=== PATIENT | female | born 1985 | race Caucasian/White ===

== ENCOUNTER → 2022-11-02 11:06 | Outpatient (BNVA) | payer OTHER, SELFPAY | PROVIDERS: Referring Provider Otolaryngology; Visit Provider Surgery | DX: R09.89 Other specified symptoms and signs involving the circulatory and respiratory systems (principal) | CPT/HCPCS: 99203 ==

== ENCOUNTER 2022-11-30 08:29 | Day surgery (SDC) | payer OTHER, SELFPAY ==
--- NOTE | 2022-11-29 16:26 | W.PM.DSUDISC ---
Date of service: 11/30/22 Time of Service: 11:27 Discharge Plan Disposition Patient Disposition: Home Condition: Good Discharge Details Reason For Visit: stomach scope Attending Provider: Filomena Sanon Primary Care Provider: None,None Home Meds and New Rx's Prescriptions: No Action cetirizine 10 mg tablet 10 mg PO DAILY fluoxetine 20 mg capsule 20 mg PO DAILY pantoprazole 20 mg tablet,delayed release (DR/EC) 20 mg PO DIRECTED spironolactone 50 mg tablet 50 mg PO DAILY cholecalciferol (vitamin D3) 2,000 units PO DAILY bupropion HCl [Wellbutrin XL] 150 mg tablet extended release 24 hr 150 mg PO DAILY Discharge Instructions Additional Instructions: Post EGD Instruction ?You had anesthesia for your EGD/stomach scope today.? For your safety, please do the following for the next twenty-four (24) hours: Do Not operate a motor vehicle (car, truck, motorcycle, etc.) Do Not drink alcoholic beverages or use any recreational drugs for the first 24 hours or while taking pain medications. The medications in your body may have a reaction that can be dangerous. Do Not make any important decisions or sign any important papers You have just had a gastroscopy (EGD) or upper GI tract examination. It is important for your smooth recovery that you carefully follow the recommendations below. Do not hesitate to call if any questions should arise about your anesthesia, condition, or care. -Symptoms you may experience during the next 24 hours: ?1. Mild abdominal pain or excessive gas or a bloated feeling which improves with rest, liquids, eating??lightly, and walking as tolerated. 2. Drowsiness and/or forgetfulness because of the medications you were given. 4. A sore throat which you can treat with throat lozenges or by gargling with salt water 4-5 times a day. 5. Redness at the site of your IV which you can treat with warm compresses. SPECIAL INSTRUCTIONS: 1. You may resume your previous diet in one hour. We recommend a light meal to start, then progress as tolerated. 2. Restart regular medications in one hour. 3. No aspirin or non-steroidal containing medication for three days. 4. No lifting over 20 pounds or strenuous activity for the first 24 hours after your procedure. After 24 hours there are no restrictions on your activity, but you may feel fatigued for a few days. Findings: few polyps otherwise normal Treatment: -Continue to follow lifestyle modifications: No alcohol, tobacco products, Aspirin or NSAID's (ibuprofen, Motrin, Naprosyn, aleve, etc).? Try to limit/avoid:? soda pop/any carbonated beverages, caffeine (including tea & chocolate), and acidic foods, (tomatoes, citrus, onions, peppermints) spicy or fried/fatty foods. Do not lie down for 30 minutes after eating, and do not eat 2 hours prior to bedtime. Avoid wearing tight fitting clothing/ belts. Follow up: in 2 wks time Call the office at [phone] (Office) or [phone] (Hospital), or go to the ER right away if you notice any of the followin. Vomiting blood and /or ?coffee ground? material. ?2. Worsening of abdominal pain or cramping. ?3. Trouble with breathing, cough, and/or fever (temperature above 101.5 F). 4. Increasing pain with swallowing. ?5. Chest pain. 6. Any new symptoms. 7. Worsening of the redness at the IV site Activity:: See above Diet:: See above Discharge Orders Discharge Orders: Discharge Order (Routine); Ordered 11/30/22 Ordered By: Filomena Sanon DS: Diagnosis Discharge Diagnosis (1) Thyroid nodule: Status: Acute (2) Globus sensation: Status: Acute
--- NOTE | 2022-11-30 06:36 | W.ANESPRE ---
General Info Date of Service Date Performed: 11/30/22 Height: 5 ft 4 in Weight: 105.233 kg Body Mass Index (BMI): 39.8 Surgical Procedure: Operation Date: 11/30/22 10:35 Proposed Procedure Side Surgeon p Gastroscopy Filomena Sanon, DO Meds Allergies and Home Medications Allergies Allergy/AdvReac Type Severity Reaction Status Date / Time banana Allergy Unknown Verified 11/30/22 09:02 egg Allergy Unknown Other (See Unverified 11/30/22 09:02 Comment) raspberry Allergy Unknown Other (See Unverified 11/30/22 09:02 Comment) Home Medication Medication Instructions Recorded bupropion HCl 150 mg 24 hr tablet, 150 mg PO DAILY 10/26/22 extended release (Wellbutrin XL) cetirizine 10 mg tablet 10 mg PO DAILY 10/26/22 cholecalciferol (vitamin D3) 2,000 units PO DAILY 10/26/22 fluoxetine 20 mg capsule 20 mg PO DAILY 10/26/22 pantoprazole 20 mg tablet,delayed 20 mg PO DIRECTED 10/26/22 release spironolactone 50 mg tablet 50 mg PO DAILY 10/26/22 Current Visit Medications: Current Medications Generic Name Dose Route Start Last Admin Trade Name Freq PRN Reason Stop Dose Admin Hyoscyamine Sulfate 0.125 mg 11/30/22 10:23 Hyoscyamine 0.125 Mg Sl/Oral/Chew SL 12/30/22 10:22 DIRECTED PRN Ringer's Solution 1,000 mls @ 80 mls/hr 11/30/22 06:00 IV 12/29/22 23:59 INFUSION [facility] IV Miscellaneous Supplies 1 each 11/30/22 06:00 Iv Access IV 12/29/22 23:59 DIRECTED SRINIVAS Ondansetron HCl 4 mg 11/30/22 10:23 Ondansetron 4 Mg/2 Ml Vial IVP 12/30/22 10:22 Q4H PRN PRN Nausea / Vomiting Sodium Chloride 0 ml 11/30/22 06:00 Normal Saline Flush 10 Ml Syr IV 12/29/22 23:59 PRN PRN Sodium Chloride 0 ml 11/30/22 06:00 Normal Saline 10 Ml Vial IJ 12/29/22 23:59 DIRECTED PRN Sterile Water 0 ml 11/30/22 06:00 Water,Injection,Sterile 10 Ml Vial IJ 12/29/22 23:59 DIRECTED PRN PFS Active Problems Active Problems: Problem Status Onset Code Thyroid nodule E04.1 Globus sensation R09.89 Medical History Medical History Acne Anxiety Surgical History Surgical History History of 2 sections 2013 History of nasal surgery Turbinoplasty 2021 History of surgery 2021 unspecified-Pt. states she had sinus on nasal turbinates History of wisdom tooth extraction 1999 Tobacco Smoking/Tobacco Use Status: Never Alcohol Alcohol Intake: current Alcohol intake frequency: holidays/special occasions only Substance Use Substance use: Never Substance use type: does not use Vital Signs and Lab Results Vital Signs Most Recent Vital Signs in EMR: Temp Pulse Resp BP Pulse Ox 36.5 C 71 18 133/97 H 100 11/30/22 08:42 11/30/22 08:42 11/30/22 08:42 11/30/22 08:42 11/30/22 08:42 Lab Results Blood Type / Crossmatch: No Data to Display Complete Blood Count: No Data to Display Complete Metabolic Panel: No Data to Display Liver Function Panel: No Data to Display Coagulation Panel: No Data to Display Cardiac Panel: No Data to Display Arterial Blood Gas: No Data to Display Venous Blood Gas: No Data to Display Pancreas Panel: No Data to Display Thyroid Panel: No Data to Display Infectious Disease: No Data to Display Blood Cultures: No Data to Display Toxicology Panel: No Data to Display Panel: No Data to Display Anesthesia Assessment and Plan Anesthesia History Personal History: No History of Anesthesia Complications Family History: No Family History of Anesthesia Complications Exercise Tolerance Exercise Tolerance: Metabolic Equivalents>4 Pertinent Negatives Pertinent Negatives: No Symptoms of GERD (controlled with meds), No Major Cardiovascular Symptoms or Complaints, No Major Pulmonary Symptoms or Complaints and No History of CVA/TIA Cardiac & Pulmonary Exam Cardiac Exam: Normal S1/S2 Heart Sounds Pulmonary Exam: Clear Bilateral Breath Sounds Implantable Cardiac Device Does patient have a Pacemaker or an ICD?: No Airway Exam Known Difficult Airway: No Mallampati Class: 1 Mouth Opening: Normal (> 3cm) Thyromental Distance: Greater than 3 cm Neck Range of Motion: Full ROM Neck Circumference: Normal Teeth Condition: Normal Dentition ASA Classification ASA Score: ASA 3 Emergency Case?: No NPO Status NPO Status: NPO Clears >2 hours, Solids >8 hours Status Status: Negative HCG Anesthesia Plan Resuscitation Status: Full Code Anesthesia Technique: General Anesthesia Airway Planned: Natural Airway Monitors Used: Standard Monitors Preoperative Comments:: 36 yo female for EGD. Sig PMHx: thyroid nodule, GERD, anxiety, s/p turbinoplasty, never smoker, occ EtOH.
[2022-11-30 08:42] VITALS: BP 133/97; PULSE 71; RESP 18; TEMP 36.5; O2SAT 100
[2022-11-30] MEDS: Lactated Ringers 1,000 ML 80 ML IV (09:23)
[2022-11-30 09:58] VITALS: BMI 39.8
--- NOTE | 2022-11-30 11:12 | STOM_PTH ---
PATIENT: Kylah Kirk LOC: [facility] U#:[id number] AGE/SX: 36/F ROOM: RE11/30/[address]: Filomena Sanon : 1985 BED: DIS: 11/30/2022 SPEC #: [id number] RECD: 11/30/22 13:03 STATUS: LIGIA [facility] #: [id number] QUANG: 11/30/22 11:[address]: Filomena Sanon DEPT: Surgical Specimen RECD BY: Little Andino ENTERED: 11/30/22 13:07 SP TYPE: STOMACH OTHR DR: Faustino Salgado MD Tissues: 1 - BIOPSY BOWEL 2 - BIOPSY BOWEL 3 - STOMACH BIOPSY 4 - STOMACH BIOPSY 5 - STOMACH BIOPSY 6 - ESOPHAGUS BIOPSY 7 - ESOPHAGUS BIOPSY 8 - ESOPHAGUS BIOPSY Procedures: GROSS AND MICRO LEVEL 4 Comments: [id number]
[2022-11-30 11:25] VITALS: BP 115/85; PULSE 87; RESP 18; TEMP 36.5; O2SAT 97
--- NOTE | 2022-11-30 11:28 | W.PM.ENDDOP ---
Date of service: 11/30/22 Time of Service: 11:28 Endoscopy Report DATE OF PROCEDURE: 11/30/22 PRE-OP DIAGNOSIS: globus sensation POST-OP DIAGNOSIS: other (same and polyps) SURGEON: Filomena Sanon ANESTHESIA TYPE: General:No Airway ESTIMATED BLOOD LOSS: 1 PATHOLOGY: other COMPLICATIONS: None DISPOSITION: same day PROCEDURE DESCRIPTION: After informed consent was obtained the patient was take to the procedure room and placed in a supine position. Monitors were applied and a time out was done. The patients name, date of , procedure type, allergies to medications and metal in their body was reviewed. A bite block was placed and the patient was sedated. Once sedated and comfortable the gastroscope was advanced through the oropharynx which was grossly normal into the esophagus. The proximal and mid-esophagus were grossly normal in appearance. There are no esophageal erosions, varices, diverticula or strictures visualized today. There does not appear to be a hiatal hernia the scope was advanced into the stomach and through the pylorus into the 3rd portion of the duodenum. The duodenum was noted to be normal. The scope is passed into the fourth portion of the duodenum/proximal jejunum. Biopsies taken of this area. Biopsies were done all specimens are retrieved and no bleeding is noted. The scope was retracted back into the stomach and biopsies were done to rule out H. pylori. There were no ulcers or gastritis. The scope was retroflexed. The cardia and fundus were noted to be normal. There are a few small polyps in the cardia fundus region. A community representative polyp was biopsied. There is no 35 a hiatal hernia noted. The scope was retracted back into the esophagus and biopsies were done of the GE junction to rule out Gonzalez's. The Z line was regular. The GE junction was at 35 cm. Biopsies are taken at the GE junction and 2 cm above labeled as distal esophagus. The scope was removed and the patient was woken up and taken back to [facility] in stable condition. Follow up: 2 wks to review bx.
[2022-11-30 11:50] VITALS: BP 111/82; PULSE 73; RESP 18; TEMP 36.5; O2SAT 99
--- NOTE | 2022-11-30 11:52 | W.ANESPOSTOP ---
Postoperative Evaluation Date, Time and Location Date Performed: 11/30/22 Time Performed: 11:25 Patient Location: Day Surgery Unit Vital Signs Most Recent Imported Vital Signs: Most Recent Vital Signs Temp Pulse Resp BP Pulse Ox 36.5 C 87 18 115/85 97 11/30/22 11:25 11/30/22 11:25 11/30/22 11:25 11/30/22 11:25 11/30/22 11:25 Pain Score Most Recent Pain Score: Most Recent Pain Score Pain Level 0 11/30/22 11:25 Assessment Mental Status: Awake (Alert & Oriented to Patient Baseline) Airway and Respiratory Function: Patent airway with normal (patient baseline) respiratory exam Cardiovascular Function: Hemodynamically Stable Hydration Status: Adequately Hydrated Nausea & Vomiting: No Nausea or Vomiting Pain: Pt. Denies Any Pain Peripheral Nerve Block: Patient did not receive a nerve block
== END 2022-11-30 12:26 | disposition home or self-care (01) ==
PROVIDERS: Visit Provider Surgery
PROC: 0DJ68ZZ Inspection of Stomach, Via Natural or Artificial Opening Endoscopic (ICD-10-PCS; CPT 43235; principal; 2022-11-30 10:00)
DX: K31.7 Polyp of stomach and duodenum (principal); R19.8 Other specified symptoms and signs involving the digestive system and abdomen; E04.1 Nontoxic single thyroid nodule; K31.9 Disease of stomach and duodenum, unspecified; K31.89 Other diseases of stomach and duodenum; K22.89 Other specified disease of esophagus
CPT/HCPCS: 43239; 81025; 88305; J2405

== ENCOUNTER 2022-12-14 01:26 | Outpatient (CLI) | payer OTHER, SELFPAY ==
--- NOTE | 2022-12-14 07:45 | DI.US_ITS ---
Exam(s) US NEEDLE LOCAL OTHER WO RAD EXAM: (2) right sided TR5 thyroid nodules,ultrasound guided bx,e04.1 COMPARISON: US US THYROID/NECK/HEAD from 09/30/2022 TECHNIQUE: Ultrasound performed using standard protocol. FINDINGS: Sonography was provided for Dr. Mccarty during the performance of a ultrasound-guided thyroid nodule biopsy. Please refer to the procedure report for complete details. DATA REPOSITORY:
--- NOTE | 2022-12-14 12:00 | PAPNONF_PTH ---
PATIENT: Kylah Kirk LOC: [facility] U#:[id number] AGE/SX: 37/F ROOM: RE12/14/[address]: Paige Scales : 1985 BED: DIS: 12/14/2022 SPEC #: [id number] RECD: 12/14/22 12:59 STATUS: LIGIA [facility] #: [id number] QUANG: 12/14/22 12:[address]: Paige Scales DEPT: [facility] Cytology RECD BY: Little Andino Tissues: 1 - BODY FLUID CYTO-FINE NEEDLE ASPIRATE-[facility] 2 - BODY FLUID CYTO-FINE NEEDLE ASPIRATE-[facility] Procedures: BODY FLUID CYTO-FINE NEEDLE ASPIRATE-[facility] Comments: [id number] (PATH FNA CONSULT) (REFRIGERATED)
--- NOTE | 2022-12-14 13:16 | W.PROCNOTE ---
Date of service: 12/14/22 Time of Service: 13:16 Procedure Note Date of procedure: 12/14/22 Procedure: Ultrasound-guided FNA, right thyroid nodule x2, pathology present Surgeon/Proceduralist/Physician: Cody Mccarty Procedure Diagnosis: Right thyroid nodules Procedure Indications: The patient has 2 right-sided thyroid nodules that meet criteria for biopsy. Options were explained to the patient regarding further management. She elected undergo the above procedure. Consent was filled out and signed prior to surgery. Procedure Description: The patient was positioned in supine position and prepped and draped in appropriate fashion with her neck slightly extended. Ultrasound probe was used to localize the nodules and each was biopsied via FNA using a 25-gauge needle, with pathology assessing for cellular adequacy. Additional passes were made for possible Afirma testing into each nodule. Once been accomplished both nodules, and ensuring adequate hemostasis, a sterile dressing was applied and the patient was laid to sit and then to stand. Her vital signs remained stable. She was able to ambulate afterwards without difficulty.
== END 2022-12-14 01:46 ==
PROVIDERS: Visit Provider Registered Nurse Maternal Newborn
DX: E04.1 Nontoxic single thyroid nodule (principal)
CPT/HCPCS: 10005; 76942; 88104

== ENCOUNTER → 2022-12-16 13:36 | Outpatient (BNVA) | payer OTHER, SELFPAY | PROVIDERS: PCP Obstetrics & Gynecology; Visit Provider Surgery | DX: Z48.815 Encounter for surgical aftercare following surgery on the digestive system (principal) | CPT/HCPCS: 99212; 99213 ==

== ENCOUNTER 2024-08-20 16:44 | Outpatient (CLI) | payer OTHER, SELFPAY ==
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
== END 2024-08-20 17:04 ==
LOC: DI 16:54
PROVIDERS: PCP Obstetrics & Gynecology; Visit Provider Anesthesiology Pain Medicine
DX: M53.3 Sacrococcygeal disorders, not elsewhere classified (principal)
CPT/HCPCS: 72220

== ENCOUNTER 2024-09-03 08:37 | Outpatient (CLI) | payer OTHER, SELFPAY ==
[2024-09-03 08:48] VITALS: BP 133/107; PULSE 86; RESP 20; TEMP 37; O2SAT 99
--- NOTE | 2024-09-03 08:48 | PDOC.PAIN ---
Date of service: 09/03/24 Time of Service: 09:37 Pain Managment Procedure Note Procedure Note Procedure Note: ? Procedure: COCCYX INJECTION ? Pre-procedure Diagnosis: M53.3 COCCYDYNIA ? Post-procedure Diagnosis:? The same as above ? Sedation: NONE? Estimated blood loss:? less than 1 cc ? Surgeon:? Bryce Delcid MD Comment: Patient had x-rays and CT of sacrum and coccyx. Looks like there is a chronic appearing lucency of the fifth sacral vertebrae. The small joint between the first 2 coccyx segments appears arthritic. On examination there is also tenderness at this site and below. ? Procedure Detail:? The procedure and potential risks were explained to the patient and informed written consent was obtained. The patient was escorted to the procedure room and placed in the prone position. Pillows were utilized for proper positioning and comfort.? Time out was performed in procedure room with nursing staff confirming the patient's identity, procedure to be performed, allergies, and any blood thinning or anti-platelet medications. The patient's lower back was prepped with chlorhexidine and draped in a sterile fashion. Sterile technique was maintained throughout the procedure.? Sterile gloves were used, a face mask was worn, and new single dose vials of all medications were used with the top being swabbed with alcohol and given time to dry prior to withdrawal of medication.? A/P and lateral fluoroscopic view was obtained, with visualization of the COCCYX IN LATERAL VIEW ? 1% LIDOCAINE was used to anesthetize the skin. A 25-gauge needle was advanced TO THE POINT OF MAXIMUM TNDERNESS . . Proper placement was verified in LATERAL views under fluoroscopy with 0.25ml Omnipaque 240. At this location, following negative aspiration, 1cc 0.5% bupivacaine and 20 mg depomedrol was injected at 2 sites.? The patient tolerated the procedure well and was transported to the recovery area for observation and discharge instructions. Permanent images saved and recorded. Pain Level: Pre-procedure 710 Post-proced /10 Follow-up:prn COMMENT:?Repeat as needed. Will consider other options possibly radiofrequency ablation or surgical referral.
[2024-09-03 09:26] VITALS: PULSE 86; O2SAT 100
--- NOTE | 2024-09-03 09:28 | DI.RAD_ITS ---
Exam(s) XR PAIN CLINIC LUMBAR SP 2V EXAM: XR PAIN CLINIC LUMBAR SP 2V CLINICAL HISTORY: DX: Coccydynia. TECHNIQUE: 2D and realtime digital imaging was performed. CONTRAST MATERIAL: Oral barium Oral water soluble contrast was administered. COMPARISON: No exams were available for comparison FINDINGS: Fluoroscopy provided during pain management injection coccyx region. See procedure report for detail s IMPRESSION: Total fluoroscopy time 29 seconds RADIATION DOSE DELIVERED: Lotusr=17.45mGy
[2024-09-03] MEDS: Nerve Block Tray 1 EACH MC (09:38)
[2024-09-03] MEDS: Bupivacaine 0.5% Pres-Free 10 ML VIAL IJ (09:38)
[2024-09-03] MEDS: methylPREDNISolone ACETATE 80 MG/ML VIAL IJ (09:39)
[2024-09-03] MEDS: Omnipaque 240 MG/ML 50 ML BTL IJ (09:39)
== END 2024-09-03 08:38 | disposition home or self-care (01) ==
LOC: PC 08:38
PROVIDERS: PCP Obstetrics & Gynecology; Visit Provider Anesthesiology Pain Medicine
DX: M53.3 Sacrococcygeal disorders, not elsewhere classified (principal)
CPT/HCPCS: 00123; 20605; 72100; J0665; J1010; Q9967

== ENCOUNTER 2025-02-13 17:07 | Outpatient (REF) | payer OTHER, SELFPAY ==
[2025-02-15 14:14] LABS: Chlamydia Result Negative (Negative); GC Result Negative (Negative)
== END 2025-02-13 17:08 | disposition home or self-care (01) ==
LOC: LBN 17:07
PROVIDERS: PCP Obstetrics & Gynecology; Visit Provider Nurse Practitioner Family
DX: R30.0 Dysuria (principal); Z11.3 Encounter for screening for infections with a predominantly sexual mode of transmission
CPT/HCPCS: 87491; 87591; 87480; 87510; 87660

== ENCOUNTER 2025-04-30 09:38 | Outpatient (CLI) | payer OTHER, SELFPAY ==
--- NOTE | 2025-04-30 06:00 | DI.RAD_ITS ---
Exam(s) XR PAIN CLINIC SACRUM 2V EXAM: XR PAIN CLINIC SACRUM 2V CLINICAL HISTORY: DX: Coccydynia TECHNIQUE: 2D and realtime digital imaging was performed. CONTRAST MATERIAL: Refer to procedure report. COMPARISON: No exams were available for comparison FINDINGS: Fluoroscopy was provided for Dr. Delcid during the performance of a coccygeal injection. Please refer to the procedure report for complete details. Ka,r=10.7 mGy IMPRESSION: RADIATION DOSE DELIVERED: 0.0 0.0 0
[2025-04-30 09:46] VITALS: BP 122/87; PULSE 93; RESP 20; TEMP 37; O2SAT 96
[2025-04-30 10:38] VITALS: PULSE 79; O2SAT 100
[2025-04-30 10:40] VITALS: PULSE 80; O2SAT 100
[2025-04-30 10:50] VITALS: PULSE 90; O2SAT 99
--- NOTE | 2025-04-30 10:53 | PDOC.PAIN ---
Date of service: 04/30/25 Time of Service: 10:56 Pain Managment Procedure Note Procedure Note Procedure Note: ? Procedure: COCCYX INJECTION ? Pre-procedure Diagnosis: M53.3 COCCYDYNIA ? Post-procedure Diagnosis:? The same as above ? Sedation: NONE? Estimated blood loss:? less than 1 ml ? Surgeon:? Bryce Delcid MD COMMENT: Patient had previous coccyx injection with excellent relief for 7 months. Patient had x-rays and CT of sacrum and coccyx. Looks like there is a chronic appearing lucency of the fifth sacral vertebrae. The small joint between the first 2 coccyx segments appears arthritic. On examination there is also tenderness at this site and below. ? Procedure Detail:? The procedure and potential risks were explained to the patient and informed written consent was obtained. The patient was escorted to the procedure room and placed in the prone position. Pillows were utilized for proper positioning and comfort.? Time out was performed in procedure room with nursing staff confirming the patient's identity, procedure to be performed, allergies, and any blood thinning or anti-platelet medications. The patient's lower back was prepped with chlorhexidine and draped in a sterile fashion. Sterile technique was maintained throughout the procedure.? Sterile gloves were used, a face mask was worn, and new single dose vials of all medications were used with the top being swabbed with alcohol and given time to dry prior to withdrawal of medication.? A/P and lateral fluoroscopic view was obtained, with visualization of the COCCYX IN LATERAL VIEW ? 1% LIDOCAINE was used to anesthetize the skin. A 25-gauge needle was advanced TO THE POINT OF MAXIMUM TNDERNESS . . Proper placement was verified in LATERAL views under fluoroscopy with 0.25ml Omnipaque 240. At this location, following negative aspiration, 1ml 0.5% bupivacaine and 20 mg depomedrol was injected at 2 sites.? The patient tolerated the procedure well and was transported to the recovery area for observation and discharge instructions. Permanent images saved and recorded. Pain Level: Pre-procedure 7/10 Post-procedur 0/10 Follow-up:prn COMMENT: Would repeat as needed Coding Conscious Sedation used for procedure: No CPT Codes: Inj,Bursa/Tendon Intermed (not SI) - ([id number] ~G) Fluoroscopic guidance (spine/paraspinous inj.) - 78124 ([id number] ~G) Additional Codes: Date of Service (11511) Date of service: 04/30/25 Diagnoses: M53.3 COCCYDYNIA
[2025-04-30] MEDS: Nerve Block Tray 1 EACH MC (11:01)
[2025-04-30] MEDS: Omnipaque 240 MG/ML 50 ML BTL IJ (11:02)
[2025-04-30] MEDS: Bupivacaine 0.5% Pres-Free 10 ML VIAL IJ (11:02)
[2025-04-30] MEDS: methylPREDNISolone ACETATE 80 MG/ML VIAL IJ (11:02)
== END 2025-04-30 09:39 | disposition home or self-care (01) ==
LOC: PC 09:38
PROVIDERS: PCP Obstetrics & Gynecology; Visit Provider Anesthesiology Pain Medicine
DX: M53.3 Sacrococcygeal disorders, not elsewhere classified (principal)
CPT/HCPCS: 20605; 72220; J0665; J1010; Q9967

== ENCOUNTER 2025-05-27 16:12 | Emergency (ER) | payer OTHER, SELFPAY ==
[2025-05-27 16:22] VITALS: BP 146/100; PULSE 87; RESP 16; TEMP 37.2; O2SAT 98
--- NOTE | 2025-05-27 16:54 | ED.GENADUL_ITS ---
Discharge Plan Disposition Patient Disposition: Home Condition: Stable Discharge Details Clinical Impression: Right calf pain Primary Care Provider: Martin Dempsey ED Provider: Carlton Ruth Home Meds and New Rx's Prescriptions: Continued epinephrine [EpiPen] 0.3 mg/0.3 mL auto-injector 0.3 mg IM Q5-15M PRN Rx Instructions: do not exceed 3 doses per episode Wegovy 1.7 mg/0.75 mL pen injector 1.7 mg subcut QWEEK Rx Instructions: administer weeks 13 through 16 of therapy cetirizine 10 mg tablet 10 mg PO DAILY fluoxetine 20 mg capsule 40 mg PO DAILY Discharge Instructions Instructions: Leg Pain (ED) Additional Instructions: You were seen in the emergency department for your right calf pain, your D-dimer is negative indicating extremely low likelihood of any clot process. This is likely musculoskeletal calf pain or an Achilles tendinopathy. Please continue Tylenol and ibuprofen as needed, obtain [id number] Voltaren gel, gently massage the area and alternate heat and ice the area with elevation and continue compression stockings as needed, follow-up with your PCP or orthopedics, please return for any severe skin changes below the pain, unilateral leg swelling, wor sening despite treatment or any other emergent concerns. Stand Alone Forms: Portal Information Referrals: [facility] [Provider Group] Martin Dempsey MD [Primary Care Provider, Obstetrics] HPI General Date/Time Provider Initiated Documentation: 05/27/25 16:17 . HPI Narrative: 39 year-old female presents to ED today by POV/ambulating with a chief complaint of R calf pain with onset a few days ago- seems to be getting worse and spreading up the leg each day. Quality described as like a stabbing pain deep in the mid to proximal calf, and a new varicosity that spontaneously popped up just above it, no radiation to unilateral leg swelling, gross skin changes to the R distal leg, medial thigh pain. Severity is described as severe. Palliating factors include relief with very hot baths, but not compression stockings. Provoking factors include nothing specific. Events leading up to the incident/Associated Symptoms: Patient does not take hormonal medications. Patient not anticoagulated. Related Data Home Medications Medication Instructions Recorded Confirmed cetirizine 10 mg tablet 10 mg PO DAILY 10/26/2210/16 fluoxetine 20 mg capsule 40 mg PO DAILY 10/26/2210/16 semaglutide (weight loss) 1.7 1.7 mg subcut QWEEK 09/1705/27/25 mg/0.75 mL subcutaneous pen injector (Wegovy) epinephrine 0.3 mg/0.3 mL 0.3 mg IM Q5-15M PRN 5 05/27/25 injection, auto-injector (EpiPen) Allergies Allergy/AdvReac Type Severity Reaction Status Date / Time banana Allergy Unknown Swelling/Ed Verified 05/27/25 16:26 jose egg Allergy Unknown Other (See Unverified 05/27/25 16:26 Comment) raspberry Allergy Unknown Other (See Unverified 05/27/25 16:26 Comment) General Stated Complaint: Vascular SABRINA: 3 Review of Systems All systems reviewed & are unremarkable except as noted in HPI and below Exam Narrative Exam Narrative: GENERAL APPEARANCE: Well-nourished, non-toxic, awake and alert, atraumatic, no acute distress. SKIN: Warm, pink, dry, intact, without rashes/lesions/ulcerations. HEAD: Normocephalic, atraumatic, normal hair distribution for gender/age. EYES: Normal conjunctiva, no exudates on lids/lashes. ENT: Nares patent, no circumoral cyanosis, no facial swelling NECK: Supple, trachea midline, painless cervical ROM. LUNGS/CHEST: Non-labored respirations, normal A/P diameter, symmetrical expansion, no chest wall deformity HEART (CV/PV): No peripheral edema, no JVD. ABDOMEN: Soft, non-distended, no guarding. MSK: Normal ROM, no swelling/deformity to bilateral UEs or LEs- tenderness in the right calf with an isolated small varicosity just above this, no medial thigh tenderness, Homans positive, brisk capillary refill and sensation intact in the right foot, moving all extremities without weakness, no cyanosis, spine midline without tenderness, normal curvature. NEURO: Mental Status AAOx4 - alert to person, place, time, events No facial droop, no forehead involvement. Motor: No focal weakness - strength 5/5 in bilateral UEs and LEs, proximal and distal, symmetric. Sensory: sensation intact to light touch globally. Gait normal: patient ambulated without ataxia into ED room. PSYCH: euthymic, cooperative, pleasant, appropriate speech Course Vital Signs Vital signs: Vital Signs Temperature 37.2 C 05/27/25 16:22 Pulse 87 05/27/25 16:22 Respiratory Rate 16 05/27/25 16:22 Blood Pressure 146/100 H 05/27/25 16:22 Pulse Oximetry 98 05/27/25 16:22 Temperature 37.2 C 05/27/25 16:22 Temperature Source Oral 05/27/25 16:22 Pulse 87 05/27/25 16:22 Respiratory Rate 16 05/27/25 16:22 Blood Pressure 146/100 H 05/27/25 16:22 Blood Pressure Position Sitting 05/27/25 16:22 Pulse Oximetry 98 05/27/25 16:22 Oxygen Delivery Method Room Air 05/27/25 16:22 Oxygen Flow Rate 0 05/27/25 16:22 Pain Level 7 05/27/25 16:22 Medical Decision Making This dictation utilizes [id number] dictation software and may contain unedited grammatical errors. 39 year-old female presents to ED today by POV/ambulating with a chief complaint of R calf pain with onset a few days ago- seems to be getting worse and spreading up the leg each day. Quality described as like a stabbing pain deep in the mid to proximal calf, and a new varicosity that spontaneously popped up just above it, no radiation to unilateral leg swelling, gross skin changes to the R distal leg, medial thigh pain. Severity is described as severe. Palliating factors include relief with very hot baths, but not compression stockings. Provoking factors include nothing specific. Events leading up to the incident/Associated Symptoms: Patient does not take hormonal medications. Patients' medical history: PCOS, thyroid nodule. Family and social history: Non- smoker, no EtOH or drug use. Pertinent exam findings / vital signs include tenderness in the right calf with an isolated small varicosity just above this, no medial thigh tenderness, Homans positive, brisk capillary refill and sensation intact in the right foot. Differential / pathologies of concern include DVT, muscle strain, superficial thrombophlebitis. Diagnostic studies of: - D-dimer - negative. Interventions of: -None, recommend APAP/NSAID, voltaren, and PCP vs orthopaedics workup, continue RICE, gentle massage, heat, compression stockings PRN. ED Course/Assessment/Plan: 39-year-old female presents with right calf pain developing atraumatically over the past few days getting worse, her D-dimer is negative do not suspect a blood clot at this time, she may have a significant muscle strain versus Achilles tendinopathy and I recommend she manage conservatively at home as she is already doing, reasonable to follow-up with PCP versus orthopedics for musculoskeletal pain, strict return criteria for any skin changes and increasing unilateral leg swelling or other signs of neurovascular compromise. Findings not consistent with DVT, neurovascular compromise, trauma. Disposition of right calf pain. Patient verbalized understanding of the plan and return to ED criteria and engaged in shared decision making. Medical Records Medical records reviewed: Yes I reviewed the patient's medical records. Lab Data Lab results reviewed: Yes I reviewed the patient's lab results. Labs: Laboratory Tests Range/Units 05/27/25 17:05 D-Dimer (<500) ng/mlFEU 166 PFSH All Active Problems (Updated 05/27/25 @ 17:51 by IRISH Moses) Right calf pain (Acute) Egg allergy (Acute) Fracture of coccyx with delayed healing (Acute) Coccydynia (Acute) Multinodular thyroid (Acute) Thyroid nodule (Acute) Globus sensation (Acute) Medical History PCOS (polycystic ovarian syndrome) As stated by Pt 08/15/24 TR Sinusitis Seasonal rhinitis Acne Anxiety Surgical History Status post biopsy of thyroid gland History of nasal surgery Turbinoplasty 2021 History of surgery 2021 unspecified-Pt. states she had sinus on nasal turbinates History of wisdom tooth extraction 1999 History of 2 sections 2013 Family History Mother Breast cancer Hypertension Father Heart attack Hypertension Sister Hypertension Maternal Grandmother Cancer Social History Smoking/Tobacco Use Status: Never Smoking risk assessment performed?: Yes Alcohol Intake: current Alcohol Intake frequency: holidays/special occasions only Drug use: Never Substance use type: does not use Current gender identity: female Do you feel safe at home: Yes Do you feel safe in your relationship?: Yes
[2025-05-27 17:42] LABS: D-Dimer 166 ng/mlFEU (<500)
[2025-05-27 18:12] VITALS: BP 128/86; PULSE 78; RESP 16; O2SAT 98
== END 2025-05-27 18:15 | disposition home or self-care (01) ==
PROVIDERS: Emergency Provider Physician Assistant; PCP Obstetrics & Gynecology
DX: M79.661 Pain in right lower leg (principal)
CPT/HCPCS: 99283 ×2; 36415; 85379

== ENCOUNTER 2025-07-19 15:57 | Emergency (ER) | payer OTHER, SELFPAY ==
[2025-07-19 16:16] VITALS: BP 136/95; PULSE 115; RESP 16; TEMP 36.8; O2SAT 97
[2025-07-19 16:36] LABS: Glucose Negative (Negative)
[2025-07-19 16:44] LABS: C & S Indicated? No; RBC Negative HPF (0-2); WBC 0-2 HPF (0-5)
[2025-07-19 17:32] LABS: COVID-19 PCR Negative (Negative); RSV PCR Negative (Negative)
--- NOTE | 2025-07-19 17:32 | ED.GENADUL_ITS ---
Discharge Plan Disposition Patient Disposition: Home Condition: Stable Discharge Details Clinical Impression: Nausea & vomiting Primary Care Provider: Martin Dempsey ED Provider: Kaleigh Hackett Home Meds and New Rx's Prescriptions: New ondansetron 4 mg tablet,disintegrating 4 mg PO Q8H PRN (Reason: nausea and vomiting) 4 Days Qty: 9 0RF Rx Instructions: Take 1 tablet up to 3 times daily as needed for nausea and vomiting 20 minutes prior to meals. No Action epinephrine [EpiPen] 0.3 mg/0.3 mL auto-injector 0.3 mg IM Q5-15M PRN Rx Instructions: do not exceed 3 doses per episode Wegovy 1.7 mg/0.75 mL pen injector 1.7 mg subcut QWEEK Rx Instructions: administer weeks 13 through 16 of therapy cetirizine 10 mg tablet 10 mg PO DAILY fluoxetine 20 mg capsule 40 mg PO DAILY Discharge Instructions Instructions: Nausea and Vomiting, Adult ED Additional Instructions: No evidence of bowel obstruction, kidney stones, or kidney infection. Please take the nausea medication 20 to 30 minutes before eating or drinking anything. Please stay away from anything fried fatty spicy or dairy. Clear liquids for the next 24 to 48 hours. Advance with a bland diet as tolerated thereafter. Bananas rice apples toast. Follow up with primary care provider in 3-5 days. Return to ED sooner if any worsening or concerns. Thank you for allowing us to care for you today. Stand Alone Forms: Portal Information Referrals: Martin Dempsey MD [Primary Care Provider, Obstetrics] - 1 week Referral Note: ER follow-up, call for an appointment Clinical Impression: Nausea & vomiting HPI General Mode of arrival: ambulatory . Date/Time Provider Initiated Documentation: 07/19/25 15:59 . Limitations to Documentation: no limitations . Information obtained by: patient, RN notes reviewed and old records reviewed . HPI Narrative: 39-year-old female presents to the ER with a chief complaint of URI congestion x 1 week and vomiting which began last night. Associated with bodyaches and lower back pain. She reports that she has been unable to keep anything down. She did take a Zofran yesterday with little to no relief. She does report that her 5-year-old daughter did have diarrhea, and her significant other did vomit x 1. Denies any significant abdominal pain however she does have some left-sided abdominal pain with palpation. No masses or guarding. Surgical history includes and endometrial ablation, anxiety and PCOS. Related Data Home Medications ?Medication ?Instructions ?Recorded ?Confirmed cetirizine 10 mg tablet 10 mg PO DAILY 10/26/2206/25 fluoxetine 20 mg capsule 40 mg PO DAILY 10/26/2206/25 semaglutide (weight loss) 1.7 1.7 mg subcut QWEEK 09/1707/19/25 mg/0.75 mL subcutaneous pen injector (Wegovy) epinephrine 0.3 mg/0.3 mL 0.3 mg IM Q5-15M PRN 5 07/19/25 injection, auto-injector (EpiPen) ondansetron 4 mg disintegrating 4 mg PO Q8H PRN nausea and 07/19/25 tablet vomiting 4 days #9 tabs Previous Rx's ?Medication ?Instructions ?Recorded ondansetron 4 mg disintegrating 4 mg PO Q8H PRN nausea and 07/19/25 tablet vomiting 4 days #9 tabs Allergies Allergy/AdvReac Type Severity Reaction Status Date / Time banana Allergy Unknown Swelling/Ed Verified 07/19/25 16:18 jose egg Allergy Unknown Other (See Unverified 07/19/25 16:18 Comment) raspberry Allergy Unknown Other (See Unverified 07/19/25 16:18 Comment) General Stated Complaint: Nausea/Vomit/Diar SABRINA: 3 Course Vital Signs Vital signs: Vital Signs Temperature 36.8 C 07/19/25 16:16 Pulse 115 H 07/19/25 16:16 Respiratory Rate 16 07/19/25 16:16 Blood Pressure 136/95 H 07/19/25 16:16 Pulse Oximetry 97 07/19/25 16:16 Temperature 36.8 C 07/19/25 16:16 Pulse 115 H 07/19/25 16:16 Respiratory Rate 16 07/19/25 16:16 Blood Pressure 136/95 H 07/19/25 16:16 Pulse Oximetry 97 07/19/25 16:16 Lab/Test Results Lab/Test Results: Laboratory Tests Range/Units 07/19/25 16:21 Urine Color (Yellow) Yellow Urine Clarity (Clear) Clear Urine pH (5-8) 6.0 Ur Specific [place] (1.005-1.025) >= 1.030 H Urine Protein (Neg-Trace) mg/dL 100 H Urine Ketones (Negative) mg/dL 80 H Urine Blood (Negative) Negative Urine Nitrite (Negative) Negative Urine Bilirubin (Negative) Small H Urine Urobilinogen (Up to 0.2) mg/dL 0.2 Ur Leukocyte Esterase (Negative) Negative Urine RBC (0-2) HPF Negative Urine WBC (0-5) HPF 0-2 Ur Epithelial Cells (Negative) HPF Moderate Urine Crystals (Negative) HPF Negative Urine Bacteria (Negative) HPF Few Urine Casts (Negative) LPF Negative Urine Mucus (Negative) Heavy Ur Culture Indicated? No Urine Glucose (Negative) mg/dL Negative POC- Test(urine) Negative Medical Decision Making 39-year-old female presents to the ER with a chief complaint of URI congestion x 1 week and vomiting which began last night. Associated with bodyaches and lower back pain. She reports that she has been unable to keep anything down. She did take a Zofran yesterday with little to no relief. She does report that her 5-year-old daughter did have diarrhea, and her significant other did vomit x 1. Denies any significant abdominal pain however she does have some left-sided abdominal pain with palpation. No masses or guarding. Surgical history includes and endometrial ablation, anxiety and PCOS. Urinalysis shows 80 ketones. Protein and small bilirubin negative for blood or WBCs. COVID flu and RSV is pending. CBC CMP magnesium liter of normal saline ordered. 4 mg of Zofran. Will wait for labs to return before ordering imaging. Differential diagnose include not limited to pyelonephritis, viral gastroenteritis, less likely bowel obstruction appendicitis. Labs show no leukocytosis, electrolytes within normal limits, urinalysis shows 80 ketones small bilirubin, culture not indicated at this time. Negative for COVID flu RSV. Lipase within normal limits. CT shows no acute findings. Patient discharged with Zofran to go and a prescription for Zofran discussed strict return instructions and home care and follow-up care. This text was generated using [employer] system, please disregard any oddities of phrase or misspellings. Medical Records Medical records reviewed: Yes I reviewed the patient's medical records. Imaging Data Radiologic Study: Imaging: CT Scan Radiologist's impression: Bones/joints: Degenerative endplate osteophytes at T10-11. No acute fracture or aggressive osseous lesion. Soft tissues: Unremarkable. IMPRESSION: 1. No acute findings. 2. Small amount of free fluid in the pelvis, likely physiologic. 3. Hepatic hypodensities are most consistent with hepatic cysts. No further follow- up is recommended. (Reference: Blayne) Lab Data Lab results reviewed: Yes I reviewed the patient's lab results. Labs: Laboratory Tests Range/Units 07/19/25 07/19/25 07/19/25 16:21 16:47 17:42 WBC (4.4-10.8) 10^3/uL 8.93 RBC (3.93-5.22) 10^6/uL 4.80 Hgb (11.2-15.7) g/dL 15.1 Hct (36.0-46.0) % 44.5 MCV (80-95) fL 93 MCH (27.0-33.0) pg 31.5 MCHC (32.0-36.0) % 33.9 RDW (11.7-14.6) % 12.1 Plt Count (130-400) 10^3/uL 227 MPV (8.0-11.0) fL 9.8 Immature Gran % % 0.3 Neutrophils % % 90.5 Lymphocytes % % 4.4 Monocytes % % 4.6 Eosinophils % % 0.1 Basophils % % 0.1 Nucleated RBC % (0.0-0.3) % 0.0 Absolute Neutrophils (1.2-6.7) 10^3/uL 8.08 H Absolute Lymphocytes (1.2-3.4) 10^3/uL 0.39 L Absolute Monocytes (0.1-0.8) 10^3/uL 0.41 Absolute Eosinophils (0.0-0.7) 10^3/uL 0.01 Absolute Basophils (0.0-0.2) 10^3/uL 0.01 Sodium (136-145) mmol/L 143 Potassium (3.5-5.1) mmol/L 3.8 Chloride (98-107) mmol/L 107 Carbon Dioxide (20.0-31.0) mmol/L 26.1 Anion Gap (3-11) mmol/L 9.9 BUN (9-23) mg/dL 10 Creatinine (0.55-1.02) mg/dL 0.70 Est GFR (CKD-EPI 2020) (mL/min/1.73m2) 91.94 Glucose (74-106) mg/dL 92 Calcium (8.3-10.6) mg/dL 8.7 Magnesium (1.6-2.6) mg/dL 1.9 Total Bilirubin (0.2-1.2) mg/dL 0.5 AST (<34) U/L 22 ALT (10-49) U/L 14 Alkaline Phosphatase (46-116) U/L 60 Total Protein (5.7-8.2) g/dL 7.2 Albumin (3.2-5.0) g/dL 4.2 Lipase (<53) U/L Urine Color (Yellow) Yellow Urine Clarity (Clear) Clear Urine pH (5-8) 6.0 Ur Specific [place] (1.005-1.025) >= 1.030 H Urine Protein (Neg-Trace) mg/dL 100 H Urine Ketones (Negative) mg/dL 80 H Urine Blood (Negative) Negative Urine Nitrite (Negative) Negative Urine Bilirubin (Negative) Small H Urine Urobilinogen (Up to 0.2) mg/dL 0.2 Ur Leukocyte Esterase (Negative) Negative Urine RBC (0-2) HPF Negative Urine WBC (0-5) HPF 0-2 Ur Epithelial Cells (Negative) HPF Moderate Urine Crystals (Negative) HPF Negative Urine Bacteria (Negative) HPF Few Urine Casts (Negative) LPF Negative Urine Mucus (Negative) Heavy Ur Culture Indicated? No Urine Glucose (Negative) mg/dL Negative COVID-19 Source Nasopharynx SARS-CoV-2 (PCR) (Negative) Negative Influenza Type A (PCR) (Negative) Negative Influenza Type B (PCR) (Negative) Negative RSV (PCR) (Negative) Negative Add-On Test Request Range/Units 07/19/25 07/19/25 18:04 18:50 WBC (4.4-10.8) 10^3/uL RBC (3.93-5.22) 10^6/uL Hgb (11.2-15.7) g/dL Hct (36.0-46.0) % MCV (80-95) fL MCH (27.0-33.0) pg MCHC (32.0-36.0) % RDW (11.7-14.6) % Plt Count (130-400) 10^3/uL MPV (8.0-11.0) fL Immature Gran % % Neutrophils % % Lymphocytes % % Monocytes % % Eosinophils % % Basophils % % Nucleated RBC % (0.0-0.3) % Absolute Neutrophils (1.2-6.7) 10^3/uL Absolute Lymphocytes (1.2-3.4) 10^3/uL Absolute Monocytes (0.1-0.8) 10^3/uL Absolute Eosinophils (0.0-0.7) 10^3/uL Absolute Basophils (0.0-0.2) 10^3/uL Sodium (136-145) mmol/L Potassium (3.5-5.1) mmol/L Chloride (98-107) mmol/L Carbon Dioxide (20.0-31.0) mmol/L Anion Gap (3-11) mmol/L BUN (9-23) mg/dL Creatinine (0.55-1.02) mg/dL Est GFR (CKD-EPI 2020) (mL/min/1.73m2) Glucose (74-106) mg/dL Calcium (8.3-10.6) mg/dL Magnesium (1.6-2.6) mg/dL Total Bilirubin (0.2-1.2) mg/dL AST (<34) U/L ALT (10-49) U/L Alkaline Phosphatase (46-116) U/L Total Protein (5.7-8.2) g/dL Albumin (3.2-5.0) g/dL Lipase (<53) U/L 25 Urine Color (Yellow) Urine Clarity (Clear) Urine pH (5-8) Ur Specific [place] (1.005-1.025) Urine Protein (Neg-Trace) mg/dL Urine Ketones (Negative) mg/dL Urine Blood (Negative) Urine Nitrite (Negative) Urine Bilirubin (Negative) Urine Urobilinogen (Up to 0.2) mg/dL Ur Leukocyte Esterase (Negative) Urine RBC (0-2) HPF Urine WBC (0-5) HPF Ur Epithelial Cells (Negative) HPF Urine Crystals (Negative) HPF Urine Bacteria (Negative) HPF Urine Casts (Negative) LPF Urine Mucus (Negative) Ur Culture Indicated? Urine Glucose (Negative) mg/dL COVID-19 Source SARS-CoV-2 (PCR) (Negative) Influenza Type A (PCR) (Negative) Influenza Type B (PCR) (Negative) RSV (PCR) (Negative) Add-On Test Request DONE PFSH All Active Problems (Updated 07/19/25 @ 20:40 by Kaleigh Hackett NP) Nausea & vomiting (Acute) Egg allergy (Acute) Fracture of coccyx with delayed healing (Acute) Coccydynia (Acute) Multinodular thyroid (Acute) Thyroid nodule (Acute) Globus sensation (Acute) Medical History PCOS (polycystic ovarian syndrome) As stated by Pt 08/15/24 TR Sinusitis Seasonal rhinitis Acne Anxiety Surgical History Status post biopsy of thyroid gland History of nasal surgery Turbinoplasty 2021 History of surgery 2021 unspecified-Pt. states she had sinus on nasal turbinates History of wisdom tooth extraction 1999 History of 2 sections 2013 Family History Mother Breast cancer Hypertension Father Heart attack Hypertension Sister Hypertension Maternal Grandmother Cancer Social History Smoking/Tobacco Use Status: Never Smoking risk assessment performed?: Yes Alcohol Intake: current Alcohol Intake frequency: holidays/special occasions only Drug use: Never Substance use type: does not use Current gender identity: female Do you feel safe at home: Yes Do you feel safe in your relationship?: Yes
[2025-07-19] MEDS: Ondansetron O.D.T. 4 MG TABEF PO (17:44)
[2025-07-19 17:46] LABS: Abs Immature Grans 0.03 10^3/uL (0.0-0.06); HCT 44.5 % (36.0-46.0); HGB 15.1 g/dL (11.2-15.7); Immature Grans % 0.3 %; MCH 31.5 pg (27.0-33.0); MCHC 33.9 % (32.0-36.0); MCV 93 fL (80-95); MPV 9.8 fL (8.0-11.0); Platelet Count 227 10^3/uL (130-400); RBC 4.80 10^6/uL (3.93-5.22); RDW 12.1 % (11.7-14.6); RDW-SD 41.8 fL; WBC 8.93 10^3/uL (4.4-10.8)
[2025-07-19] MEDS: Normal Saline 1,000 ML 1000 ML IV (17:52)
[2025-07-19 17:53] VITALS: BP 132/86; PULSE 75; RESP 16
[2025-07-19 18:03] LABS: ALT 14 U/L (10-49); AST 22 U/L (<34); Albumin 4.2 g/dL (3.2-5.0); Alkaline Phosphatase 60 U/L (46-116); Anion Gap 9.9 mmol/L (3-11); BUN 10 mg/dL (9-23); Bilirubin, Total 0.5 mg/dL (0.2-1.2); CO2 26.1 mmol/L (20.0-31.0); Calcium 8.7 mg/dL (8.3-10.6); Chloride 107 mmol/L (98-107); Glucose 92 mg/dL (74-106); Magnesium 1.9 mg/dL (1.6-2.6); Potassium 3.8 mmol/L (3.5-5.1); Sodium 143 mmol/L (136-145); Total Protein 7.2 g/dL (5.7-8.2)
[2025-07-19] MEDS: ACETAMINOPHEN 1,000 MG/100 ML BAG 400 MG IVPB (18:12)
[2025-07-19 18:44] LABS: Lab Add On Test DONE
--- NOTE | 2025-07-19 18:45 | DI.CT_ITS ---
Exam(s) CT ABDOMEN PELVIS WO EXAM: CT ABDOMEN PELVIS WO CLINICAL HISTORY: N/V Back pain. TECHNIQUE: Imaging Protocol: Axial computed tomography images with coronal and sagittal reformatted images were created and reviewed CONTRAST MATERIAL: Intravenous: none Oral: None COMPARISON: No exams were available for comparison FINDINGS: VISUALIZED LUNG BASES: No nodules nor pleural effusions evident. ABDOMEN: LIVER: There are 3 small benign-appearing hypodensities in the liver which are probably benign cysts. The largest is in the inferior aspect of the right hepatic lobe and measures 1.6 x 1.6 cm. There are no dilated intrahepatic ducts. GALLBLADDER/BILIARY: No obvious gallbladder pathology. CBD is not dilated. PANCREAS: No evidence of pancreatic mass nor dilatation of the pancreatic duct. SPLEEN: Spleen is not enlarged. No obvious intrasplenic lesions. ADRENALS: There are no significant adrenal masses. KIDNEYS:No cysts evident. No solid renal masses. No calculi nor hydronephrosis. . ABDOMINAL AORTA: Abdominal aorta is not enlarged. LYMPH NODES: There is no retroperitoneal nor paraaortic adenopathy. ABDOMINAL WALL: No evidence of significant anterior abdominal wall nor inguinal hernia. GI: There is no evidence of bowel obstruction, free air, nor abscess. PELVIS: There is a small amount of fluid in the cul-de-sac. LYMPH NODES: There is no intrapelvic nor inguinal adenopathy. GI: No evidence of appendicitis.No evidence of sigmoid diverticulitis. URINARY BLADDER: No calculi nor obvious masses evident REPRODUCTIVE: Uterus size upper normal. Right adnexa unremarkable. There is a E 2.7 by 3.2 by 3.5 cm hypodensity in the left adnexa which is probably an ovarian cyst. Is difficult to differentiate this from adjacent unopacified small bowel loops. OSSEOUS: No significant osseous lesions. No fractures. IMPRESSION: 1. There is a 3.5 x 2.7 x 3.2 cm finding in the left adnexa which is probably an ovarian cyst and there is a small amount of free fluid in the cul-de-sac. Recommend follow-up pelvic ultrasound. No right adnexal findings. No appendicitis. 2. There are 3 benign-appearing hypodensities in the liver which are most probably benign attic cysts. No further follow-up recommended. Reference: Blayne et al. Management of incidental liver lesions on CT. A white paper of the ACR incidental findings committee. Journal [place] [employer] 2017 volume 14 [phone]. Preliminary read report was reviewed. RADIATION DOSE DELIVERED: 794.22mGy.cm Total DLP DATA REPOSITORY: All CT scans at this facility are submitted to the National Radiology Data Registry (NRDR) Dose Index Registry (DIR) with the [employer] (ACR). RADIATION OPTIMIZATION: All CT scans at this facility use at least one of these dose optimization techniques: automated exposure control; mA and/or kV adjustment per patient size (includes targeted exams where dose is matched to clinical indication); or iterative reconstruction.
[2025-07-19 19:09] LABS: Lipase 25 U/L (<53)
[2025-07-19] MEDS: Metoclopramide 10 MG/2 ML VIAL IVP (19:19)
[2025-07-19 19:25] VITALS: BP 127/74; PULSE 107; RESP 16; O2SAT 100
[2025-07-19] MEDS: diphenhydrAMINE 50 MG/ML VIAL 25 MG IVP (19:49)
--- NOTE | 2025-07-19 20:34 | DI.VRAD_ITS ---
PROCEDURE INFORMATION: Exam: CT Abdomen And Pelvis Without Contrast Exam date and time: 07/19/2025 7:32 PM Age: 39 years old Clinical indication: Abdominal pain; Other: N/v back pain TECHNIQUE: Imaging protocol: Computed tomography of the abdomen and pelvis without contrast. COMPARISON: CT SACRUM AND COCCYX WO 08/24/2024 10:28 AM FINDINGS: Limitations: Full evaluation is suboptimal without intravenous contrast. Liver: Hypodensity of the dome of the right lobe of the liver measures up to 0.8 cm, too small to accurately characterize but likely representing hepatic cyst. Additional hepatic cysts at segment 5 are appreciated. Gallbladder and biliary ducts: Normal. No calcified stones. No ductal dilation. Pancreas: Normal. No ductal dilation. Spleen: Normal. No splenomegaly. Adrenal glands: Normal. No mass. Kidneys and ureters: No radiopaque calculi. No hydronephrosis. Stomach and bowel: Unremarkable. No obstruction. No mucosal thickening. Appendix: No evidence of appendicitis. Intraperitoneal space: Minimal free fluid of the pelvis, likely physiologic. No free gas. Vasculature: Unremarkable. No abdominal aortic aneurysm. Lymph nodes: Unremarkable. No enlarged lymph nodes. Urinary bladder: Unremarkable as visualized. Reproductive: Unremarkable as visualized. Bones/joints: Degenerative endplate osteophytes at T10-11. No acute fracture or aggressive osseous lesion. Soft tissues: Unremarkable. IMPRESSION: 1. No acute findings. 2. Small amount of free fluid in the pelvis, likely physiologic. 3. Hepatic hypodensities are most consistent with hepatic cysts. No further follow-up is recommended. (Reference: Blayne) REFERENCES: Blayne PATE, et al. Management of Incidental Liver Lesions on CT: A White Paper of the ACR Incidental Findings Committee. J Am Maurilio Radiol. 2017;14(11):1890-2698. Dictated and Authenticated by: Martinez Marshall MD. Orderin Lew Farris MD
[2025-07-19] MEDS: Ondansetron O.D.T. 4 MG TABEF, 3 TABS/BTL PO (21:05)
[2025-07-19 21:06] VITALS: BP 125/65; PULSE 90; RESP 16; O2SAT 98
== END 2025-07-19 20:42 | disposition home or self-care (01) ==
PROVIDERS: Emergency Medicine; Emergency Provider Registered Nurse Emergency; PCP Obstetrics & Gynecology
DX: R11.2 Nausea with vomiting, unspecified (principal); M54.50 Low back pain, unspecified
CPT/HCPCS: 99284 ×2; 36415; 81025; 96375; 80053; 83690; 87637; 96365; 74176; 81003; 81015; 83735; 85025; J0131; J1200; J2765